=== PATIENT | female | born 1965 | race Caucasian/White ===

== ENCOUNTER 2023-03-14 20:46 | Day surgery (SDC) | payer OTHER, SELFPAY ==
[2023-03-14 13:53] VITALS: BP 92/60
[2023-03-14 14:02] VITALS: BMI 23.6
--- NOTE | 2023-03-14 14:08 | ED.GENMED ---
History of Present Illness
General
Chief Complaint: Abdominal Pain
Source: patient, records and spouse
Exam Limitations: none
Time Seen by Provider: 03/14/23 14:02
Nursing documentation reviewed up to this point in time: agreed with
Travel History
Have you had any contact with someone who has COVID-19?: No
Do you have any symptoms of coronavirus? Fever > 100 degrees, chills, cough, shortness of breath, sore throat, loss of taste or smell, muscle aches, or headache?: No
History of Present Illness
History of Present Illness:
Patient is a 58-year-old female who presents to the emergency department complaining of right renal colic that started this morning. Patient has a known history of kidney stones. Yesterday patient felt some urgency and frequency but no pain.
Patient denies any dysuria or hematuria. Patient denies fever or chills. Patient denies any nausea or vomiting. Patient did take oxycodone along with tamsulosin and Keralac at 830 and again at 130. 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
had moderate to severe hydronephrosis and a stone down near the bladder. Patient was unable to measure the stone due to bowel gas.
Past History
Past History
ED Past Medical History: Other (Kidney stones)
ED Past Surgical History: Gynecological (Hysterectomy)
Social History
Tobacco: Non-smoker
Alcohol: None
Drug: None
Review of Systems
Review of Systems
All Other Systems: ROS reviewed and negative except as documented in HPI and ROS
Constitutional: Reports no symptoms
EENT: Reports no symptoms
Respiratory: Reports no symptoms
Cardiac: Reports no symptoms
ABD/GI: Reports abdominal pain; Denies nausea, vomiting, diarrhea or constipated
: Reports frequency, flank pain and urgency; Denies dysuria or bleeding
Musculoskeletal: Reports back pain
Skin: Reports no symptoms
Neurological: Reports no symptoms
Hematologic/Lymphatic: Reports no symptoms
Phy Exam
Physical Exam
Physical Exam:
Physical Exam
General: significant distress, alert and appropriate, well nourished
HENT: Normocephalic, supple
Eyes: Clear sclera, conjuctiva without injection
Heart: Regular rhythm and rate. No S3, S4. No murmur.
Lungs: No respiratory distress, no stridor, lung sounds clear and equal bilaterally
Abdomen: Soft, nontender, no organomegaly, right CVA tenderness, BS good
Neuro: Alert and oriented x 3, CN II - XII intact, no motor focality, no cerebellar dysfunction
Skin: no rash. Pale
Psychiatric: well kept. interactive and cooperative
Extremities: No edema, cyanosis, tenderness, Good and equal peripheral pulses.
Course
Orders/Labs/Results
Orders:
Orders
03/14/23 14:07
0.9% Sodium Chloride 1000 ml [Nss] 1,000 ml IV BOLUS
HYDROmorphone [Dilaudid] 1 mg IV NOW STA
Ketorolac [Toradol] 15 mg IV NOW STA
Ondansetron Injectable [Zofran] 4 mg IV NOW STA
03/14/23 14:11
Complete Blood Count/With Diff Urgent
Comprehensive Metabolic Panel Urgent
03/14/23 14:16
CT Abd/pel Without Iv Or Oral Urgent
Comment:
Reason For Exam: right renal clic
03/14/23 15:25
HYDROmorphone [Dilaudid] 1 mg .ROUTE .STK-MED ONE
03/14/23 15:27
HYDROmorphone [Dilaudid] 1 mg IV NOW STA
03/14/23 15:52
Tamsulosin [Flomax] 0.4 mg .ROUTE .STK-MED ONE
03/14/23 15:55
Tamsulosin [Flomax] 0.4 mg PO NOW STA
03/14/23 16:56
Fentanyl Citrate/Pf [Sublimaze] 50 mcg IV NOW STA
03/14/23 17:00
Urinalysis Reflex To Culture Urgent
Date Specimen was Collected: 03/14/23
Time Specimen was Collected: 16:58
Urine Microscopic Reflex Cult Urgent
03/14/23 18:53
Fentanyl Citrate/Pf [Sublimaze] 50 mcg IV NOW STA
Ondansetron Injectable [Zofran] 4 mg IV NOW STA
03/14/23 19:55
HYDROmorphone [Dilaudid] 1 mg IV NOW STA
03/14/23 19:57
Ketorolac [Toradol] 15 mg IV NOW STA
Abnormal Lab Results
03/14/23 03/14/23
14:11 17:00
BUN 24 H mg/dl
(7-17)
Glucose 125 H mg/dl
(70-99)
Urine Ketones 3+ A
(Negative)
Ur Occult Blood Reflex Trace A
(Negative)
Leukocyte Esterase Rfl Trace A
(Negative)
Urine RBC 3-6 A /HPF
(0-2)
Urine Bacteria (Reflex) Few A
(Negative)
03/14/23 14:11
03/14/23 14:11
Vital Signs
Initial and Last Documented VS:
Initial Vital Signs
Temp Pulse Resp BP Pulse Ox
97.6 F 69 18 92/60 100
03/14/23 13:53 03/14/23 13:53 03/14/23 13:53 03/14/23 13:53 03/14/23 13:53
Last Documented Vital Signs
Temp Pulse Resp BP Pulse Ox
97.6 F 65 18 122/72 99
03/14/23 13:53 03/14/23 19:03 03/14/23 19:03 03/14/23 19:03 03/14/23 19:03
*Pulse Oximetry
Patient hypoxic: no
*EKG
Interpreted by ED Provider?: NA
*Wheel Tuner Interpretation
Rate: Wheel Tuner- N/A
*Critical Care Note
Total Time (30-74mins, 75-104mins- exclusive of procedures): Not Applicable
Update Note
Update Note:
Patient after 6 hours continues to have pain even though 3 mm UPJ stone with moderate hydronephrosis. Urine does not appear to be infected. Will admit the patient to urology.
ED Attending Note
-
Portions of this chart may have been created with voice recognition software.� Occasional wrong word or��sound alike� substitutions may have occurred due to the inherent limitations of voice recognition software.
Discharge Plan
Departure
Patient Disposition: Admit
Date of Disposition: 03/14/23
Time of Disposition: 19:58
Admit to: Med/Surg
Admit to doctor: Urology
Presentation/result/management discussed w/ accepting MD/DO: Urology
Patient with high blood pressure during this ER visit?: No
Condition: Serious
Covid-19: Not Applicable
Discharge Problem:
Renal colic on right side, Ureterolithiasis, Hydronephrosis due to obstruction of ureter, Intractable pain
Prescriptions:
No Action
ketorolac 10 mg tablet
10 mg PO TID PRN (Reason: pain) 3 Days Qty: 10 0RF
tamsulosin [Flomax] 0.4 mg capsule
0.4 mg PO DAILY Qty: 10 0RF
Referrals:
Kae Wallace MD [Family Provider] -
Interventions
Interventions:
*General Assessment Last Done: 03/14/23 13:53
*ED COVID-19 Vaccine History Last Done: 03/14/23 13:53
VJ-Gafmmj-Emedvuiqrb Assessment Last Done: 03/14/23 14:10
[2023-03-14] MEDS: NSS 1000 IV ×2 (14:13→21:55)
[2023-03-14] MEDS: DILAUDID 1 MG IV ×4 (14:13→21:57)
[2023-03-14] MEDS: TORADOL 15 MG IV ×2 (14:14→20:39)
[2023-03-14] MEDS: ZOFRAN 4 MG IV ×2 (14:14→19:00)
[2023-03-14 14:24] LABS: % Basophils 0.6 % (0-2); % Eosinophils 0.6 % (0-6); % Immature Granulocytes 0.2 % (0-0.5); % Lymphocytes 32.5 % (20.5-51.1); % Monocytes 6.2 % (1.7-9.3); % Neutrophils 59.9 % (42.2-75.2); Absolute Lymphocytes 1.7 10^3/uL (1.2-3.4); Absolute Monocytes 0.3 10^3/uL (0.1-0.6); Absolute Neutrophils 3.1 10^3/uL (1.4-6.5); Hematocrit 37.5 % (37.0-47.0); Mean Corp Hgb Conc. 34.7 g/dL (33.0-37.0); Mean Corpuscular Hgb 29.3 pg (27.0-31.0); Mean Corpuscular Volume 84.7 fL (81.0-99.0); Mean Platelet Volume 9.3 fL (7.4-10.4); Nucleated Red Blood Cells % 0 %; Platelet Count 233 10^3/uL (130-400); Red Blood Cell Count 4.43 10^6/uL (4.20-5.40); Red Cell Dist. Width 13.1 % (11.5-14.5); White Blood Cell Count 5.2 10^3/uL (4.8-10.8)
[2023-03-14 14:46] LABS: ALT (SGPT) 15 U/L (0-35); AST (SGOT) 24 U/L (14-36); Albumin 4.3 g/dl (3.5-5.0); Alkaline Phosphatase 75 U/L (38-126); Blood Urea Nitrogen 24 mg/dl (7-17); Calcium 9.3 mg/dl (8.4-10.2); Carbon Dioxide 23 mmol/L (22-30); Chloride 107 mmol/L (98-107); Estimated Creatinine Clearance 93 ml/min; Glucose 125 mg/dl (70-99); Potassium 4.1 mmol/L (3.5-5.1); Sodium 135 mmol/L (135-145); Total Bilirubin 0.6 mg/dl (0.2-1.3); Total Protein 6.6 g/dl (6.3-8.2); eGFR > 60.00
[2023-03-14 15:35] VITALS: BP 104/71
[2023-03-14] MEDS: FLOMAX 0.400000000000000022 MG PO (15:57)
[2023-03-14] MEDS: SUBLIMAZE 50 MCG IV ×2 (16:59→18:59)
[2023-03-14 17:03] VITALS: BP 106/72
[2023-03-14 17:14] LABS: Urine Albumin Trace (Neg - Trace); Urine Bilirubin Negative (Negative); Urine Character Clear (Clear); Urine Color Yellow; Urine Glucose Negative (Negative); Urine Ketone 3+ (Negative); Urine Leukocyte Trace (Negative); Urine Nitrite Negative (Negative); Urine Occult Blood Trace (Negative); Urine Urobilinogen Negative (Neg - 1+)
[2023-03-14 17:32] LABS: Urine Squamous Cell >30 /LPF (Few)
[2023-03-14 17:33] LABS: Urine Calcium Oxalate Crystals Present
[2023-03-14 17:34] LABS: Urine Bacteria Few (Negative)
[2023-03-14 19:03] VITALS: BP 122/72
--- NOTE | 2023-03-14 20:37 | HPS.HSE ---
Family Physician
<IRVIN Renee - Last Filed: 03/14/23 20:51>
-
Family Physician: Kae Wallace
Chief Complaint
<IRVIN Renee - Last Filed: 03/14/23 20:51>
-
kidney stone pain
History of Present Illness
Patient is a 58-year-old female who presents to the emergency department complaining of right renal colic that started this morning.� Patient has a known history of kidney stones (able to pass on own each time).� Yesterday patient felt some urgency
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
After 6 hrs in ED and multiple rounds of pain meds (toradol, fentanyl and dilaudid) pt remains in mod -severe pain with nausea as well.
Received 1 liter IVF x1
Ct abd confirms 3 mm calculus at the right ureterovesical junction with associated upstream moderate right hydroureteronephrosis throughout.
Medical History
<IRVIN Renee - Last Filed: 03/14/23 20:51>
Past Medical History
Past Medical History: Reports Other (essential tremor, kidney stones)
Past Surgical History: Reports Gynocological (hysteretomy)
Social History
Tobacco: Non-smoker
Alcohol: None
Drug: None
Personal: Single
Living: With Family
Family History
Family History: Not pertinent
Allergies / Home Medications
Allergies reflects when Allergies were last updated in [email or web address].
Home Medications with original date entered in [email or web address]
Allergy/Medication List:
Allergies
Allergy/AdvReac Type Severity Reaction Status Date / Time
No Known Allergies Allergy Verified 03/14/23 13:57
Home Medications
ketorolac 10 mg tablet 10 mg PO TID PRN pain 3 days
tamsulosin 0.4 mg capsule (Flomax) 0.4 mg PO DAILY
estraidol vag cream
Review of Systems
<IRVIN Renee - Last Filed: 03/14/23 20:51>
-
History Source: Patient
A 12 point ROS was completed and negative except as noted: Yes
Constitutional: Reports See HPI
EENT: Reports No Symptoms
Respiratory: Reports No Symptoms
Cardiac: Reports No Symptoms
Abdomen/GI: Reports Nausea and Vomiting
: Reports See HPI and Flank Pain (right flank wrapping around to right groin)
Musculoskeletal: Reports No Symptoms
Skin: Reports No Symptoms
Neurological: Reports No Symptoms
Endocrine: Reports No Symptoms
Hematologic/Lymphatic: Reports No Symptoms
Psych: Reports No Symptoms
Physical Exam
<IRVIN Renee - Last Filed: 03/14/23 20:51>
Vital Signs
Vital Signs
Temp Pulse Resp BP Pulse Ox
97.6 F 65 18 122/72 99
03/14/23 13:53 03/14/23 19:03 03/14/23 19:03 03/14/23 19:03 03/14/23 19:03
Physical Exam
General: Well Developed, Well Nourished, Appears in Distress and Pain (severe right flank pain, writhing)
HEENT: NormoCephalic, Anicteric, Moist mucous membranes and PERRLA
Respiratory: Clear
Cardiac: S1/S2 and Regular Rhythm
Breast: Deferred by me
GI: Soft and Normal Bowel Sounds
Rectal: Deferred by Provider
Genito-urinary: Costovertebral angle tend (right side)
Musculoskeletal: No Clubbing and No Cyanosis
Skin: Warm and Dry
Neuro: Awake, Alert, Oriented, AO x 3 and No Motor Deficits
Hematologic/Lymphatic: No Lymphadenopathy
Psych: Anxious (due to pain )
Laboratory Results
<IRVIN Renee - Last Filed: 03/14/23 20:51>
-
03/14/23 14:11
03/14/23 14:11
Laboratory Results
Total Bilirubin 0.6 mg/dl (0.2-1.3) 03/14/23 14:11
AST 24 U/L (14-36) 03/14/23 14:11
ALT 15 U/L (0-35) 03/14/23 14:11
Alkaline Phosphatase 75 U/L (38-126) 03/14/23 14:11
Data Reviewed
<IRVIN Renee - Last Filed: 03/14/23 20:51>
-
Lab Data: Discussed with Physician
<Nehemiah Mcallister MD - Last Filed: 03/15/23 08:06>
-
CT Scan: Image Personally Visualized and interpreted (3 mmright UVJ stone with severe hydroureteronephrosis)
Impression/Plan
<IRVIN Renee - Last Filed: 03/14/23 20:51>
-
IMPRESSION:
3mm right renal lithiasis w/ hydronephrosis
PLAN:
Admit to service of Dr Mcallister
med surg obs
#3mm right renal lithiasis w/ hydronephrosis
-NPO after midnight in case needs OR
-Pain control: Has been difficult to control in ED , but continue dilaudid, toradol prn
-Zofran prn nausea
-Flomax daily--- already received in ED today
- Strain urine
- IVF Nss @125
-cbc, bmp in am
-ua does not appear infected. Observe off abx
DVT proph: scds
Full code
<Nehemiah Mcallister MD - Last Filed: 03/15/23 08:06>
-
IMPRESSION:
3mm right, obstructing distal ureteral w/ severe hydroureteronephrosis and intractable pain
PLAN:
Admit to service of Dr Mcallister
med surg obs
#3mm right renal lithiasis w/ hydronephrosis
-NPO after midnight in case needs OR
-Pain control: Has been difficult to control in ED , but continue dilaudid, toradol prn
-Zofran prn nausea
-Flomax daily--- already received in ED today
- Strain urine
- IVF Nss @125
-cbc, bmp in am
-ua does not appear infected. Observe off abx
DVT proph: scds
Full code
Patient has been offered surgery this AM -- consent signed; OR notified
[2023-03-14 21:33] VITALS: BP 117/83; BMI 24.1
[2023-03-14 23:15] VITALS: BP 130/71
[2023-03-15] VITALS (7 sets, daily range): BP systolic 106–126; BP diastolic 69–79
[2023-03-15] MEDS: DILAUDID 1 MG IV ×3 (00:07→06:24)
[2023-03-15] MEDS: ZOFRAN 4 MG IV (02:25)
[2023-03-15 05:10] LABS: Hematocrit 34.2 % (37.0-47.0); Hemoglobin 11.4 g/dL (12.0-16.0); Mean Corp Hgb Conc. 33.3 g/dL (33.0-37.0); Mean Corpuscular Hgb 29.1 pg (27.0-31.0); Mean Corpuscular Volume 87.2 fL (81.0-99.0); Mean Platelet Volume 9.7 fL (7.4-10.4); Platelet Count 192 10^3/uL (130-400); Red Blood Cell Count 3.92 10^6/uL (4.20-5.40); Red Cell Dist. Width 13.1 % (11.5-14.5); White Blood Cell Count 7.1 10^3/uL (4.8-10.8)
[2023-03-15 05:34] LABS: Blood Urea Nitrogen 25 mg/dl (7-17); Calcium 9.1 mg/dl (8.4-10.2); Carbon Dioxide 23 mmol/L (22-30); Chloride 107 mmol/L (98-107); Estimated Creatinine Clearance 81 ml/min; Glucose 120 mg/dl (70-99); Potassium 4.6 mmol/L (3.5-5.1); Sodium 138 mmol/L (135-145); eGFR > 60.00
[2023-03-15] MEDS: NSS 1000 IV (05:49)
--- NOTE | 2023-03-15 08:06 | W.SUR.PREOP ---
Pre-Operative Surgical Note
-
I have examined this patient prior to the performance of the scheduled procedure.
The patient's condition is unchanged from the time of the current History and
Physical and the patient is able to undergo the scheduled procedure.
Consent signed then place on chart.
[2023-03-15] MEDS: ANCEF 10 IV (09:13)
--- NOTE | 2023-03-15 09:39 | W.IMMPOSTOP ---
Surgical Immed Post Op Note
-
Primary Surgeon: Esvin
Pre-op Diagnosis: Right ureteral stone with intractable pain
Post-op Diagnosis: same
Procedure Performed: right ureteroscopy with basket extraction of stone
Anesthesia Type: LMa
Specimen / Cultures: stone
Estimated Blood Loss: none
Complications: none
Operative Findings: irregularly-surfaced, yellow and brown, 2x3 mm distal right ureteral calculus with dilatation of ureter proximal to stone
no ureteral stent was placed
[2023-03-15] MEDS: Pyridium 200 MG PO (10:07)
--- NOTE | 2023-03-15 11:24 | CM ---
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 Pharmacy is [facility] on [address] in [place] and PCP is Dr. Kae Wallace. Anticipate no needs at discharge.
[2023-03-15] MEDS: TORADOL 15 MG IV (12:22)
[2023-03-15] MEDS: FLUSH (NSS) 2 FLUSH IV (12:23)
--- NOTE | 2023-03-15 16:23 | CM ---
Patient has been medically cleared for discharge to home with no additional skilled services. Significant other will transport home.
--- NOTE | 2023-03-15 17:20 | PTCARENOTE ---
pt returned from PACU at 1025. pt arrived sleepy but easily arousable. VSS. at 1115, pt assisted to ambulate to bathroom. voided small amount of orange urine. c/o bladder discomfort-remains sleepy-medicated w/Toradol per MAR with verbalized
pain relief. tolerating sips of water-no appetite or desire to eat. pt able to get comfortable and fall asleep. pt awoke around 1500, feeling much improved. less sleepy-out of bed to bathroom, voided moderate amount of orange urine. tolerating
water and ordered regular lunch tray. tolerated regular food without c/o. pt stated ready for Discharge.
at bedside. discharge instructions reviewed.
[2023-03-18 12:31] LABS: Stone Analysis Mass 7 mg
== END 2023-03-15 18:00 | disposition home or self-care (01) ==
LOC: SDS 20:46
PROVIDERS: Nurse Practitioner Family; ATTENDING PHYSICIAN Specialist; EMERGENCY PHYSICIAN Emergency Medicine; FAMILY PHYSICIAN Internal Medicine
DX: N13.2 Hydronephrosis with renal and ureteral calculous obstruction (principal); R52 Pain, unspecified; Z87.442 Personal history of urinary calculi
CPT/HCPCS: 52352; 74018; 74176; 76000; 80048; 80053; 81003; 81015; 82365; 85025; 85027; 96361; 96374; 96375; 96376; 99285; C1894; G0378

== ENCOUNTER → 2024-04-06 14:28 | Outpatient (REF) | payer OTHER, SELFPAY | LOC: WDC 14:28 | PROVIDERS: ATTENDING PHYSICIAN Nurse Practitioner | DX: Z12.31 Encounter for screening mammogram for malignant neoplasm of breast (principal) | CPT/HCPCS: 77063; 77067 ==